=== PATIENT | female | born 1985 | race Caucasian/White ===

== ENCOUNTER → 2017-11-05 | Outpatient (CLI) | payer OTHER ==
[~2017-11-05] MED LIST: HYDR-3104 GT; HYDR-3250 PO; KETO-58 PO; PER PO
== END ==
LOC: LAB 13:00
PROVIDERS: ATTEND Nurse Practitioner
DX: Z02.89 Encounter for other administrative examinations (principal)
CPT/HCPCS: 36415; 99001

== ENCOUNTER → 2018-04-10 | Outpatient (CLI) | payer BC, OTHER ==
--- NOTE | 2018-04-10 09:31 | RADIOLOGY IMAGING REPORT ---
FACILITY: [facility] PATIENT NAME: Clementina Melendrez : 1985 MR: [id number] V: [id number] EXAM DATE: ORDERING PHYSICIAN: ANTON FERNANDES TECHNOLOGIST: Location: [facility] [place] Patient: Clementina Melendrez : 1985 Visit/Account:[id number] Date of Sevice: 04/10/2018 US SINGLE ORGAN HISTORY: Left lower quadrant mass, patient ran into the cavity at 10-14 days ago with bruising COMPARISON: None. FINDINGS: In the location of patient's palpable abnormality in the left lower quadrant is a slightly complex ov oid collection with both solid and cystic components measuring 6.9 x 5.7 x 3.4 mm. The anterior bord er is approximately 2.5 mm deep to the skin. This may represent a small hematoma given the clinical history IMPRESSION: Small complex collection 2.5 mm deep to the skin in the left lower quadrant of abdomen in location of patient's bruising likely representing a small hematoma as described above Report Dictated By: Mary Alice Del Angel MD at 04/10/2018 9:26 AM Report E-Signed By: Mary Alice Del Angel MD at 04/10/2018 9:28 AM CHELSYN:VIC
== END ==
LOC: US 07:10
PROVIDERS: ATTEND Physician Assistant
DX: M79.81 Nontraumatic hematoma of soft tissue (principal)